=== PATIENT | female | born 1985 | race African-American/Black ===

== ENCOUNTER 2020-05-29 14:00 | Emergency (ER) | payer MEDICARE, OTHER ==
[~2020-05-29 14:00] MED LIST: Iopamidol 370 76% 100 ML VIAL ONE
[2020-05-29] MEDS ORDERED: Acetaminophen 500 MG TAB ONE (14:36)
[2020-05-29 14:44] LABS: #Lymphocytes 0.9 thou/uL (1.20-3.40); #Monocytes 0.5 thou/uL (0.11-0.59); #Neutrophils 1.9 thou/uL (1.40-6.50); %Basophils 1.4 % (0.0-1.0); %Eosinophils 0.2 % (0.0-10.0); %Monocytes 15.1 % (0.0-10.0); %Neutrophils 56.3 % (42.0-75.0); Hemoglobin 13.5 g/dL (12.0-16.0); Mean Corpuscular HGB CONC 31.5 g/dL (32.0-36.0); Mean Corpuscular Hemoglobin 26.2 pg (27.0-31.0); Mean Corpuscular Volume 83.2 fL (78.0-98.0); Mean Platelet Volume 7.1 fL (7.4-10.4); Platelet Count 292 thou/uL (130-400); RBC Distribution Width 13.1 % (11.5-14.5); Red Blood Cell (RBC) Count 5.16 mill/uL (4.20-5.40); White Blood Cell (WBC) Count 3.4 thou/uL (4.8-10.8)
[2020-05-29 14:45] LABS: BHCG - Serum Negative (NEGATIVE); Pregs Control Bar Appear? YES (CONTROL BAR)
[2020-05-29 14:56] LABS: ALT (SGPT) 16 U/L (8-55); AST (SGOT) 14 U/L (5-34); Albumin 3.9 g/dL (3.5-5.0); Alkaline Phosphatase 66 U/L (40-110); Anion Gap 17 mmol/L (10-20); BUN (Urea Nitrogen) 8 mg/dL (7.0-18.7); Bilirubin, Total 0.3 mg/dL (0.2-1.2); CK (CPK) 103 U/L (29-168); Calc. Creatinine Clearance 0 mL/min (70-130); Calcium 8.8 mg/dL (7.8-10.44); Carbon Dioxide 22 mmol/L (22-29); Chloride 103 mmol/L (98-107); Globulin 3.1 g/dL (2.4-3.5); Glucose 247 mg/dL (70-105); Lipase 25 U/L (8-78); Potassium 3.6 mmol/L (3.5-5.1); Sodium 138 mmol/L (136-145)
--- NOTE | 2020-05-29 16:22 | RAD ---
Exam: Chest one view HISTORY:Chest pain Comparison: None FINDINGS: Cardiac silhouette: Normal Aorta: Unremarkable Pulmonary vessels: Normal Costophrenic angles: Clear LUNGS: No masses or consolidation. Pneumothorax: None Osseous abnormalities: None IMPRESSION: No acute cardiopulmonary process.
--- NOTE | 2020-05-29 16:54 | CT ---
Exam: CT angiogram of the chest HISTORY: Pleuritic pain. Elevated d-dimer. Coughing chest pain. COMPARISON: None TECHNIQUE: CT angiogram of the chest is performed in the axial plane. Three-dimensional reformatted i mages are submitted for interpretation FINDINGS: Mediastinum: No mass, lymphadenopathy or hematoma. Mildly enlarged right hilar lymph node measuring 1 .1 x 1.6 cm. HEART: Normal size. No significant pericardial fluid. Aorta: No aneurysm or dissection Upper solid abdominal viscera: No abnormality enhancement. Trachea and central bronchi: Patent Pleural spaces: No effusion Lung parenchyma: There is a opacity in the superior segment of the right lower lobe which may represe nt a developing pneumonia measuring 3.1 x 2.3 cm. Additional smaller groundglass opacities are noted in the right lower lobe, left lower lobe and right upper lobe. Correlate for possible atypical infection including COVID 19 pneumonia. Pneumothorax: None Osseous structures: No lytic or blastic lesions Pulmonary arteries:Limited evaluation pulmonary arterial system to the level of the lobar arteries du e to timing of contrast bolus. No filling defect to suggest embolism. IMPRESSION: 1. Limited evaluation pulmonary arterial system due to timing of contrast bolus. No filling defect to the level of the lobar arteries 2. Enlarged right hilar lymph node 3. Groundglass opacities with a somewhat peripheral distribution. Correlate for atypical pneumonia in cluding COVID 19 pneumonia. Second less favored consideration could be septic emboli.
[2020-05-29] MEDS ORDERED: Lidocaine 4% Cream 5 GM TUBE w/ Tegaderm ONE (16:58)
[2020-05-29] MEDS ORDERED: Azithromycin 250 MG TAB ONE (17:25)
[2020-05-29] MEDS ORDERED: cefTRIAXone\\ROCEPHIN 2 GM VIAL ONE (17:25)
[2020-05-29] MEDS ORDERED: Sodium Chloride 0.9% 100 ML ONE (17:27)
[2020-05-29] MEDS ORDERED: Sodium Chloride 0.9% 1,000 ML ONE (17:28)
[2020-05-29] MEDS ORDERED: Promethazine 25 MG TAB ONE (18:04)
[2020-05-29] MEDS ORDERED: Ondansetron ODT 4 MG TAB ONE (18:04)
== END 2020-05-29 18:18 | disposition home or self-care (01) ==
LOC: NAV ERS 14:00
DX: J18.9 Pneumonia, unspecified organism (principal); R11.2 Nausea with vomiting, unspecified; Z20.828 Contact with and (suspected) exposure to other viral communicable diseases; I10 Essential (primary) hypertension; J45.909 Unspecified asthma, uncomplicated; G47.30 Sleep apnea, unspecified; Z79.899 Other long term (current) drug therapy
CPT/HCPCS: 71045; 71275; 80053; 82550; 83605; 83690; 83880; 84484; 84703; 85025; 85379; 93005; 96365; J0696; J3490; J7030; Q0162; Q0169; Q9967